=== PATIENT | male | born 2000 | race Hispanic/Latino ===

== ENCOUNTER 2020-07-16 18:06 | Emergency (ER) | payer SELFPAY ==
--- NOTE | 2020-07-16 20:56 | ULT ---
EXAM: US Soft Tissue Other PROVIDED CLINICAL HISTORY: Right inguinal swelling for last 2 months. History of infected cyst. COMPARISON: CT abdomen and pelvis on 05/02/2016. FINDINGS: Provided images are labeled right inguinal canal area of swelling. There is a large multiloculated cy stic structure with linear echogenic areas present likely representing septations. Additional increased irregular echogenic areas are seen which may represent debris within a complicated cystic l esion. Color flow evaluation does not demonstrate flow within this structure. Prior CT of the abdomen demonstrated a multiloculated cystic structure in the right hemipelvis. Comment is likely cor responds to findings on recent CT exam. Nonspecific mildly prominent lymph node is seen in the medial aspect of the proximal right thigh measuring 1 cm in short axis dimension. There is mild subcutaneous edema involving the medial aspect of the mid and lower thigh. A mildly pro minent lymph node is seen in the lower medial thigh region measuring 1.1 cm. IMPRESSION: Complex multiloculated cystic lesion and areas of increased echogenicity which may represent associat ed debris within this cystic structure. A large cystic lesion was seen in the right hemipelvis on prior study of 05/02/2016. Patient demonstrated multiple complex cystic masses throughout the abdomen and pelvis on CT exam in 2010. Findings could be related to complex lymphocele or lymphatic malformation. However, other complex cystic lesion is not entirely excluded.
== END 2020-07-16 21:24 | disposition home or self-care (01) ==
LOC: ERS 18:06
DX: R19.09 Other intra-abdominal and pelvic swelling, mass and lump (principal)
CPT/HCPCS: 76999

== ENCOUNTER 2021-04-20 12:20 | Emergency (ER) | payer SELFPAY ==
[2021-04-20 13:28] LABS: #Eosinphils 0.1 thou/uL (0.0-0.7); #Lymphocytes 1.7 thou/uL (1.20-3.40); #Monocytes 0.9 thou/uL (0.11-0.59); #Neutrophils 8.5 thou/uL (1.40-6.50); %Basophils 0.1 % (0.0-1.0); %Eosinophils 1.2 % (0.0-10.0); %Lymphocytes 14.9 % (21.0-51.0); %Neutrophils 75.8 % (42.0-75.0); Hemoglobin 14.5 g/dL (14.0-18.0); Mean Corpuscular HGB CONC 33.4 g/dL (32.0-36.0); Mean Corpuscular Hemoglobin 32.1 pg (27.0-31.0); Mean Corpuscular Volume 96.3 fL (78.0-98.0); Mean Platelet Volume 6.9 fL (7.4-10.4); Platelet Count 611 thou/uL (130-400); RBC Distribution Width 11.9 % (11.5-14.5); Red Blood Cell (RBC) Count 4.52 mill/uL (4.70-6.10); White Blood Cell (WBC) Count 11.2 thou/uL (4.8-10.8)
[2021-04-20 14:01] LABS: ALT (SGPT) 55 U/L (8-55); AST (SGOT) 19 U/L (5-34); Albumin 4.1 g/dL (3.5-5.0); Alkaline Phosphatase 123 U/L (40-110); Anion Gap 12 mmol/L (10-20); BUN (Urea Nitrogen) 10 mg/dL (8.9-20.6); Bilirubin, Total 0.5 mg/dL (0.2-1.2); Calc. Creatinine Clearance 0 mL/min (70-130); Calcium 10.1 mg/dL (7.8-10.44); Carbon Dioxide 27 mmol/L (22-29); Chloride 100 mmol/L (98-107); Glucose 99 mg/dL (70-105); Potassium 3.9 mmol/L (3.5-5.1); Protein, Total 9.1 g/dL (6.0-8.3); Sodium 135 mmol/L (136-145)
== END 2021-04-20 14:21 | disposition home or self-care (01) ==
LOC: ERS 12:20
DX: Z48.02 Encounter for removal of sutures (principal)
CPT/HCPCS: 36415; 80053; 85025; 99281